=== PATIENT | female | born 1945 | race Caucasian/White ===

== ENCOUNTER 2019-09-06 02:37 | Inpatient (IN) | payer OTHER ==
[2019-09-06] VITALS (7 sets, daily range): BP systolic 89–147; BP diastolic 50–87
[~2019-09-06] VITALS: Ht 167.6 cm; Wt 139.2 kg
[2019-09-06] MEDS ORDERED: LASIX (02:49)
[2019-09-06] MEDS ORDERED: NEURONTIN800 MG PO (02:49)
[2019-09-06] MEDS ORDERED: WELLBUTRIN PO (02:50)
[2019-09-06 02:59] LABS: HEMATOCRIT 41.6 % (37.0-47.0); HEMOGLOBIN 13.9 gm/dL (12.0-15.0); MCH 30.4 pg (26.0-34.0); MCHC 33.5 g/dL (28.0-37.0); MCV 90.6 fL (80.0-100.0); NUCLEATED RBCS 0 /100WBC; PLATELET COUNT* 215 thou/uL (150-400); RBC 4.59 mil/uL (4.20-5.00); RDW-CV 15.1 % (10.5-14.5); WBC 16.5 thou/uL (4.0-11.0)
[2019-09-06 03:03] LABS: CALCIUM 8.8 mg/dL (8.5-10.1); CREATININE 1.9 mg/dL (0.6-1.3); POTASSIUM 4.1 mmol/L (3.5-5.1); PROTIME 10.5 Seconds (9.20-11.50)
[2019-09-06 03:13] LABS: ALBUMIN 3.9 g/dL (3.4-5.0); MAGNESIUM 1.5 mg/dL (1.8-2.4); TOTAL BILIRUBIN 0.5 mg/dL (<0.1-1.0)
[2019-09-06 03:33] LABS: ABSOLUTE EOSINOPHILS 0.3 thou/uL (0.0-0.7); ABSOLUTE LYMPHOCYTES 1.7 thou/uL (0.8-5.3); ABSOLUTE MONOCYTES 1.3 thou/uL (0.0-1.2); ABSOLUTE NEUTROPHILS 13.2 thou/uL (1.6-8.1); PLATELET ESTIMATE ADEQUATE
[2019-09-06 04:37] LABS: URINE BILIRUBIN NEGATIVE (Negative); URINE BLOOD 1+ (Negative); URINE CLARITY CLEAR; URINE COLOR YELLOW; URINE GLUCOSE-RANDOM NEGATIVE (Negative); URINE KETONES NEGATIVE (Negative); URINE LEUKOCYTES-REFLEX 1+ (Negative); URINE NITRITE-REFLEX NEGATIVE (Negative); URINE PROTEIN NEGATIVE (Negative); URINE SPECIFIC GRAVITY >= 1.030 (1.005-1.030); URINE UROBILINOGEN 0.2 E.U./dl (0.2-1.0)
[2019-09-06 04:50] LABS: INFLUENZA A ANTIGEN Negative (Negative); INFLUENZA B ANTIGEN Negative (Negative)
[2019-09-06 05:13] LABS: BACTERIA-REFLEX 1-9 Few /HPF (None Seen); CASTS None Seen /LPF (None Seen); CRYSTALS None Seen /LPF (None Seen); MUCUS 0-3 Light strn/LPF (None Seen); SQUAMOUS 4-10 Moderate /LPF (0-3); URINE RBC 0-2 Rare /HPF (0-2)
[2019-09-06] MEDS ORDERED: ASA81BEC PO (05:25)
--- NOTE | 2019-09-06 06:12 | NUR ---
PT ADMIT TO 226 AT 0525. ALERT ORIENTED. PT POOR HISTORIAN. UNABLE TO REMEMBER SOME OF HER MED AND NONE OF HER DOSAGES. PT USES A MAIL ORDER PHARMACY BUT DOES NOT KNOW WHICH ONE. SHE STATES THE DR TAKES CARE OF IT. TELEMETRY NSHOW SR. NS STARTED AT 100MLS/HR. IV ABX ORDERED. MEDICATION UNAVAILABLE UNTIL PHARMACY FILLS ORDER.
--- NOTE | 2019-09-06 07:10 | NUR ---
CHANGE OF SHIFT, BEDSIDE REPORT GIVEN PATIENT SEEN AT BEDSIDE, IN BED ASLEEP ASSUMED PATIENT CARE
[2019-09-06 11:29] LABS: CALCIUM 8.5 mg/dL (8.5-10.1); CREATININE 1.8 mg/dL (0.6-1.3); POTASSIUM 4.1 mmol/L (3.5-5.1)
--- NOTE | 2019-09-06 12:40 | NUR ---
Nutrition: Pt admitted with N/V/D. Seen for high BMI. Pt stated she usually weighs 287#, but wt in bed is 305#. RD reweighed pt in bed today at 318#. Pt stated her wt at PCP office was 287# and she hasn't noticed any wt changes. Albumin 3.9. No h/o DM, steroid use. She is tolerating some clear liquids. She stated she doesn't eat but one meal per day so is confused why she isn't losing wt. We discussed the issue. Encouraged her to eat more very small meals throughout the day, making them healthy and not junk food. She wants to try vanilla Ensure as a meal replacement - RD ordered. Otherwise, low nutrition risk.
--- NOTE | 2019-09-06 12:42 | NUR ---
CM ASSESSMENT: PT LIVES ALONE IN [facility]. THEY DO NOT PROVIDE ANY MEALS OR ASSISTANCE. PT STATES HER APT IS ONE LEVEL. SHE USES A SHOWER CHAIR AND A WALKER. SHE DRIVES BUT ONLY FOR SHORT DISTANCES. HER DTR IN LAW HELPS WITH HER MEDICATIONS AND DRIVING HER LONGER DISTANCES. SHE DOES NOT WANT SNF BUT WOULD LIKE HH UPON DC. SHE HAS USED HH IN THE PAST BUT IS UNSURE ON THE NAME OF THE COMPANY. PT CURRENTLY ON 02 AND WILL POSSIBLY NEED IT AT DC
--- NOTE | 2019-09-06 13:54 | EKG ---
[place] [address] ELECTROCARDIOGRAM REPORT Name: ED MISTRY Room: [address] ADM IN ..#: [id number] Admission: 09/06/19 Attend Phys: Yue Spencer MD Discharge: Date of : 41 Report #: [id number] THIS REPORT FOR: //name// [facility] ED Test Date: 2019-09-06 Test Time: 02:47:15 Pat Name: ED MISTRY Department: Room: [facility] Gender: F Dcs Engineer: : [id number] Requested By: Salome Jackson Order Number: [id number] MD: Dangelo James Measurements Intervals Iraan Rate: 105 P: 51 RI: 181 QRS: -8 QRSD: 90 T: 145 QT: 384 QTc: 508 Interpretive Statements Sinus tachycardia poor r wave progression Prolonged QT interval No previous ECG available for comparison Electronically Signed On 09-06-2019 13:54:05 RELINER by Dangelo James [email or web address] <ELECTRONICALLY SIGNED> By: Dangelo James MD, [facility] 09/06/19 1354 6 Dangelo James MD, FACC /EPI
[2019-09-07] VITALS: BP 123/60
[2019-09-07 04:00] VITALS: BP 107/56
[2019-09-07 05:27] LABS: HEMATOCRIT 34.5 % (37.0-47.0); MCH 30.8 pg (26.0-34.0); MCHC 33.9 g/dL (28.0-37.0); MPV 7.9 fl. (7.2-11.1); RBC 3.79 mil/uL (4.20-5.00); WBC 12.1 thou/uL (4.0-11.0)
[2019-09-07 05:33] LABS: HEMOGLOBIN 11.7 gm/dL (12.0-15.0)
[2019-09-07 06:04] LABS: ALBUMIN 2.8 g/dL (3.4-5.0); CALCIUM 8.7 mg/dL (8.5-10.1); CREATININE 1.8 mg/dL (0.6-1.3); MAGNESIUM 1.9 mg/dL (1.8-2.4); POTASSIUM 4.2 mmol/L (3.5-5.1); TOTAL BILIRUBIN 0.3 mg/dL (<0.1-1.0); TOTAL PROTEIN 6.5 g/dL (6.4-8.2)
--- NOTE | 2019-09-07 06:13 | NUR ---
PT IS ABLE TO COMMUNICATE HER NEEDS TO STAFF EFFECTIVELY. CURRENT PAIN MEDICAITON REGIMEN HAS BEEN ADEQUATE FOR CONTROLLING HER PAIN UP TO THIS TIME. SHE IS CURRENTLY ON A FULL LIQUID DIET; DENIES ANY NAUSEA/VOMITING OVERNIGHT. BARIATRIC BED ORDERED; SHOULD BE DELIVERED TODAY; PT IS A Q2HR TURN, BUT TURNING IS NOT POSSIBLE/COMFORTABLE IN HER CURRENT BED. PT/OT WORKING WITH PT. WOUND CARE CONSULTED.
[2019-09-07 08:00] VITALS: BP 104/59
--- NOTE | 2019-09-07 10:00 | NUR ---
Nutrition: Consult received this morning for "OBE." RD already spoke with pt yday about food choices, tips on healthy diet, Ensure meal replacement shake. Low risk.
--- NOTE | 2019-09-07 11:06 | NUR ---
SPOKE WITH PT ABOUT SNF REFERRAL. PT STATES SHE WOULD PREFER HH AND STAY IN HER HOME BUT SHE WOULD BE OPEN TO SNU IF DOCTORS AND THERAPY RECCOMMEND IT. PT DOES NOT WANT [facility] OR [facility] SHE HAS BEEN THERE IN THE PAST. IF SHE RETURNS HOME SHE WOULD LIKE RESOURCES FOR A HEALTH AIDE TO COME OUT ONCE A WEEK TO HELP WITH LIGHT HOUSEWORK AND HOUSEHOLD TASKS. INFORMED THAT THIS WOULD BE PRIVATE PAY. IF SNF SHE WOULD PREFER A PLACE IN [place]. PT GIVEN LIST OF FACILITES TO REVIEW. PT NOR YET READY FOR DC. GOING TO FOR A VQ SCAN THIS AFTERNOON. CM WILL CONTINUE TO FOLLOW
--- NOTE | 2019-09-07 12:04 | NUR ---
DISCUSSED SNF WITH PT AND DR HAYDEN. DR HAYDEN REC SNF. PT OK WITH GOING TO SNF [place]ON [place]. FIRST CHOICE IS [facility] THEN [facility] THEN [facility]. HER CONCERN IS THAT SHE WOULD LIKE A PRIVATE ROOM. SPOKE TO GARY AT [facility] . ALL ROOMS HAVE PRIVATE BEDS. THERE AR FEMALE BEDS AVAILABLE. PT TO TENTATIVELY BE DISCHARGED ON THURSDAY. WILL FAX FACESHEET AND PAPERWORK TODAY
[2019-09-07 12:08] VITALS: BP 95/62
--- NOTE | 2019-09-07 12:55 | NUR ---
ASSUMED PT CARE REPORT RECEIVED FROM NURSE PT IS AOX ON RA O2 SAT 95%. VSS. NO COMPLAINT. IV ABX GIVEN ORDERED. VQ SCAN ORDERED. TRANSFER PLANNED WITH [facility] . REPORT GIVEN TOP Atrica FROM [facility]. PT PICKED UP BY EMS AT 1245. LEFT FLOOR AT 1245 ACCOMPANIED BY EMS PERSONEL AND A NURSE ON STRETCHER. HEART MONITOR KEPT IN ROOM. WILL AWAIT FOR PT RETURN
--- NOTE | 2019-09-07 13:59 | NUR ---
WOUND CARE NOTE: CONSULT RECEIVED FOR SKIN BREAKDOWN L. FOOT AND RIGHT ABD PATIENT PRESENTS WITH A FULL THICKNESS LESION TO THE RIGHT UPPER ABDOMEN. WOUND MEASURES 1.2X1.X2X0.2. MOIST, RED GRANULATION TISSUE TO 100% OF THE WOUND BED. PATIENT STATED IT WAS A HARD PLACE THAT SHE HAD PICKED AT. CLEANSED LESION WITH WOUND CLEANSER, PATTED DRY. APPLIED SKIN PREP TO ANGELY-WOUND AND COVERED WITH AN OPTIFOAM AG THEN TEGADERM. ANGELY-WOUND INTACT. LEFT DORSAL ASPECT OF HER FOOT APPEARS WITH PUSTULES. VARIOUS DIFFERENT STAGES OF HEALING. PATIENT IS UNSURE OF ETIOLOGY. NO DRAINAGE NOTED, MOST ARE DRY AND HEALING. APPLIED LOTION OVER AREA. WOULD LIKE TO GET COMPRESSION GARMETS TO BILATERAL LEGS, BUT PATIENT WAS LEAVING UNIT FOR TESTING. GOOD PEDAL PULSES. PATIENT STATES SHE BELIEVES THESE LESIONS ARE FROM POOR CIRCULATION. RECOMMEND ELEVATE BLE COMPRESSION BLE DRESSING CHANGE TO ABDOMINAL WOUND Q3 DAYS AND PRN PLAN TO REASSESS TOMORROW TO APPLY COMPRESSION TO LEGS.
--- NOTE | 2019-09-07 16:20 | NUR ---
RECEIVED CALL FROM [facility] REQUESTING RESULTS OF URINE AND BLOOD CULTURES UPON DC LATER THIS WEEK
--- NOTE | 2019-09-07 16:38 | NUR ---
PT BACK FOR [facility] AT 1635 ACCOMPANIED BY TWO TRANSPORTERS AND THE NURSE. PT DENIES PAIN. VSS. RA. BACK IN BED. READY FOR DINER. CALL LIGHT AT REACH. NEURONTIN GIVEN TO PT. TOBI CONTINUE TO MONITOR
[2019-09-07 16:48] VITALS: BP 130/82
[2019-09-07 21:04] VITALS: BP 109/60
[2019-09-08] VITALS: BP 114/61
[2019-09-08 05:46] LABS: HEMOGLOBIN 11.6 gm/dL (12.0-15.0); MCH 30.7 pg (26.0-34.0); MCV 90.3 fL (80.0-100.0); MPV 7.5 fl. (7.2-11.1); RBC 3.76 mil/uL (4.20-5.00); RDW-CV 15.2 % (10.5-14.5); WBC 7.5 thou/uL (4.0-11.0)
[2019-09-08 06:03] LABS: ALBUMIN 2.7 g/dL (3.4-5.0); CALCIUM 8.4 mg/dL (8.5-10.1); CREATININE 1.7 mg/dL (0.6-1.3); MAGNESIUM 1.9 mg/dL (1.8-2.4); POTASSIUM 4.3 mmol/L (3.5-5.1); TOTAL BILIRUBIN 0.2 mg/dL (<0.1-1.0); TOTAL PROTEIN 6.3 g/dL (6.4-8.2)
--- NOTE | 2019-09-08 07:15 | NUR ---
CHNAGE OF SHIFT, BEDSIDE REPORT GIVEN PATIENT SEEN AT BEDSIDE, IN BED ASLEEP ASSUMED PATIENT CARE
[2019-09-08 08:00] VITALS: BP 127/72
--- NOTE | 2019-09-08 08:09 | NUR ---
PT IS ABLE TO COMMUNICATE HER NEEDS TO STAFF EFFECTIVELY. CURRENT PAIN MEDICATION REGIMEN HAS BEEN ADEQUATE FOR CONTROLLING HER PAIN UP TO THIS TIME. MED/SURG, NON-MONITORED STATUS NOW. WOUND CARE CONSULTED. BARIATRIC BED HAS BEEN ORDERED.
--- NOTE | 2019-09-08 10:45 | NUR ---
WOUND CARE NOTE: ASSESSMENT FOR TUBIGRIP. MEASURED PATIENT FOR SIZE F TUBIGRIP. APPLIED SINGLE LAYER TO BOTH LEGS. PATIENT STATED THEY FELT BETTER WITH THESE ON. EDUCATED ON S/S TO NOTIFY PATIENT'S RN IF THEY FEEL TOO TIGHT. PATIENT COMMUNICATED UNDERSTANDING. ASSISTED MODEL MAKER PLASTER WITH TRANSFERING PATIENT TO BARIATRIC BED.
--- NOTE | 2019-09-08 13:35 | NUR ---
CONTINUE TO FOLLOW, MET WITH PT. PER , ANTICIPATE READY FOR DC TOMORROW. PT STILL WANTS TO GO TO SNF, PREFERS [facility]. CALLED AND FAXED UPDATED CLINICAL TO GARY/[facility]. AWAITING DECISION, WILL NEEDS INSURANCE AUTH WELL
--- NOTE | 2019-09-08 14:06 | NUR ---
RECEIVED PATIENT FROM [facility]. TRANSFERED BY BED TO ROOM 102 WITH NURSING STAFF. REPORT RECEIVED FROM ANDRES DOVER. ALL QUESTIONS ANSWERED. PATIENT AXOX4, AGREE WITH PREVIOUS NURSE ASSESSMENT. PATIENT HAS NO NEEDS OR COMPLAINTS AT THIS TIME. CALL LIGHT IN REACH.
--- NOTE | 2019-09-08 14:15 | NUR ---
PATIENT TRANSFERRRED TO [facility] SENT REPORT GIVEN TO JAZZMINE JOSEPH PATIENT MOVED VIA BED
[2019-09-08 16:00] VITALS: BP 116/66; BP 178/77
--- NOTE | 2019-09-08 16:58 | NUR ---
PATIENT PROGRESSING WELL TOWARDS GOALS. PATIENT HAS NOT NEEDED MUCH SINCE ARRIVING TO FLOOR. COMFORTABLE IN BED AT THIS TIME WATCHING TV. CALL LIGHT IN REACH. BED IN LOWEST POSTION.
[2019-09-08 19:30] VITALS: BP 135/63
--- NOTE | 2019-09-09 07:30 | NUR ---
ASSESSMENT COMPLETED CHARTED. SEE MAR. FALL PRECAUTIONS IN PLACE. VSS. PROGRESSING TOWARDS GOALS. HOURLY ROUNDING FOR SAFETY.PAD
[2019-09-09 08:12] VITALS: BP 140/78
--- NOTE | 2019-09-09 08:14 | NUR ---
[facility] HAVE DECLINED PT THIS AM. CALLED AND FAXED REFERRAL TO PT'S [address] [place] [address]/[facility]. THEY WILL CONSIDER PT BUT WILL NOT HAVE BEDS UNTIL SAT AND WILL NEED TO GET AUTH IF ACCEPT
--- NOTE | 2019-09-09 09:44 | NUR ---
FAXED REFERRAL TO [facility]. CONFIRMED WITH SEAN/CAROLE THAT SHE RECEIVED REFERRAL AND THEY ARE GOING TO REVIEW. DCP TO FOLLOW & INFORM SEAN OF [facility] DC DATE.
--- NOTE | 2019-09-09 16:01 | NUR ---
ASSUMMED CARE OF PT AT 0730, PT ALERT AND ORIENTED, PT UP TO CHAIR WITH MIN ASSIST AND WALKER, PT UP TO COMMODE SEVERAL TIMES, SMALL AMOUNT OF LOOSE STOOL X 3, TAKING FOOD AND FLUIDS WELL, IV INFILTRATED IN RIGHT FOREARM, DC'D WITH NEEDLE INTACT, LEGS WASHED AND TUBIGRIPS REAPPLIED PER OT, PT DENIES PAIN THIS SHIFT, PT HAS GENERALIZED EDEMA, EXTREMITIES ELEVATED, PT HAS AUDIBLE WHEEZES AT TIMES WITH ACTIVITY, PT NEEDS ENCOURAGEMENT TO DO MUCH POSSIBLE FOR HERSELF, 02 SAT 92% ON RA, PT ENCOURAGED TO COUGH AND DEEP BREATHE, ASSESSMENT COMPLETE, HOURLY ROUNDING COMPLETE, WILL CONTINUE TO MONITOR.
--- NOTE | 2019-09-09 16:06 | NUR ---
ANATOLY/Matthew DID NOT HAVE A DECISION ON PT. AND WILL NEED INSURANCE AUTH. INFORMED PT.THAT [facility] COULD NOT ACCEPT AND REFERRAL WAS SENT TO [facility]. SHE SAID SHE DID NOT WANT TO GO THERE. HAD A BAD EXPERIENCE THERE THIS SUMMER. SHE WOULD LIKE TO TRY [facility]. [facility] /[facility] SAID THEY DONT HAVE ANY BEDS UNITL THURSDAY. FAXED REFERRAL TO HER [phone]. INFORMED PT.SHE WOULD BE HERE OVER THE WEEKEND.
[2019-09-09 16:42] VITALS: BP 140/81
[2019-09-09 20:00] VITALS: BP 154/74
--- NOTE | 2019-09-10 07:52 | NUR ---
Alert and oriented x 4. Denies nausea, did have a tylenol for headache. She's up with assist x 2 with walker to the bedside commode. Vitals are stable. She has slept well.
[2019-09-10 08:28] VITALS: BP 142/80
--- NOTE | 2019-09-10 15:32 | NUR ---
PT SOMEWHAT PROGRESSING TOWARDS GOALS THIS SHIFT. AWAITING SNF PLACEMENT AT THIS TIME. UP TO CHAIR FOR MEALS. NO OTHER CONCERNS AT THIS TIME. CLWR. WCTM.
[2019-09-10 17:18] VITALS: BP 143/77
[2019-09-10 21:25] VITALS: BP 130/69
--- NOTE | 2019-09-11 05:38 | NUR ---
ASSUMED CARE OF PT 09/10/19 AT APPROX 1930, PT A&OX4, PT ON ROOM AIR, VSS, PT TURNED Q2, HOURLY ROUNDINGS AND ASSEMSSMENT COMPLETED, WILL CONTINUE TO MONITOR.
[2019-09-11 07:50] VITALS: BP 134/74
--- NOTE | 2019-09-11 15:31 | NUR ---
PT PROGRESSING TOWARDS GOALS THIS SHIFT. VSS. ANTICIPATE SNF PLACEMENT TOMORROW. UP TO CHAIR FOR MEALS. NO OTHER CONCERNS AT THIS TIME. CLWR. WCTM.
[2019-09-11 16:00] VITALS: BP 120/70
[2019-09-11 20:50] VITALS: BP 126/68
--- NOTE | 2019-09-12 07:30 | NUR ---
ASSUMED CARE OF PT 09/11/19, PT A&OX4, PT ON ROOM AIR, VSS, Q2 TURNS COMPLETED, ASSESSMENTS AND HOURLY ROUNDINGS COMPLETED. REPORT GIVEN AND CARE TRANSFERED TO DAY SHIFT NURSE 09/12/19 APPROX 0737.
[2019-09-12 08:26] VITALS: BP 128/72
--- NOTE | 2019-09-12 11:26 | NUR ---
FAXED OT UPDATES TO [facility] [phone]; [phone]. SENT OT WITH PT TO FOLLOW WHEN COMPLETED.
[2019-09-12 12:16] VITALS: BP 128/72
[2019-09-12] MEDS ORDERED: LEVAQUIN 500 M500 M3 PO (12:27)
--- NOTE | 2019-09-12 13:09 | NUR ---
PT.TO DISCHARGE HOME TODAY WITH HOME HEALTH. SHE IS BACK TO HER BASELINE. SPOKE WITH HER. SHE SAID HER DAUGHTER IN LAW WOULD BE PICKING HER UP. DISCUSSED HOME HEALTH. SHE WOULD LIKE [facility] SHE HAS USED THEM BEFORE. REFERRAL FAXED TO [facility] [phone]. SHE IS AWARE THEY WILL CALL HER TOMORROW TO SET UP APPT.
--- NOTE | 2019-09-12 15:13 | NUR ---
PT DISCHARGED TO HOME WITH HH BY WHEELCHAIR WITH NURSING STAFF AND DAUGHTER IN [place] AT 1513. NO IV. PERSONAL ITEMS SENT WITH PT. DISCHARGE PICTURES TAKEN OF WOUNDS. PAPER SCRIPT AND CARE NOTES GIVEN TO PT.
== END 2019-09-12 15:13 | disposition home health service (06) | DRG 177 ==
LOC: M.ERS 02:37 → M.TBA-ER 03:34 → M.2W 03:53 → M.TBA-ER 03:53 → M.2W 04:42 → M.TBA-ER 04:42 → M.2W 05:26 → M.ORTHSURG 09-08 13:59
PROVIDERS: Emergency Medicine; ADMIT Internal Medicine
DX: J15.6 Pneumonia due to other Gram-negative bacteria (principal); R65.11 Systemic inflammatory response syndrome (SIRS) of non-infectious origin with acute organ dysfunction; N17.9 Acute kidney failure, unspecified; E44.0 Moderate protein-calorie malnutrition; Z68.42 Body mass index [BMI] 45.0-49.9, adult; A08.4 Viral intestinal infection, unspecified; I10 Essential (primary) hypertension; E83.42 Hypomagnesemia; E66.01 Morbid (severe) obesity due to excess calories; N93.9 Abnormal uterine and vaginal bleeding, unspecified; Z79.899 Other long term (current) drug therapy